=== PATIENT | male | born 1995 | race Caucasian/White ===

== ENCOUNTER → 2024-05-09 | Outpatient (CLI) | payer BC | LOC: RAD 13:08 | DX: R06.00 Dyspnea, unspecified (principal) ==

== ENCOUNTER 2024-07-26 11:19 | Emergency (ER) | payer BC ==
[~2024-07-26] VITALS: Ht 175.3 cm; Wt 113.6 kg
[2024-07-26] MEDS ORDERED: NS 1,000 ML IV SCH (12:15)
[2024-07-26 12:27] LABS: BASO # 0.03 K/mm3 (0.02-0.10); EOS # 0.25 K/mm3 (0.04-0.40); EOS % 2.5 % (0.0-4.0); HEMOGLOBIN 13.9 g/dL (13.5-18.0); LYMPH# 2.73 K/mm3 (1.50-4.00); MEAN CELL VOLUME 85 fl (78-100); MEAN CORPUSCULAR HEMOGLOBIN 30 pg (27-31); MEAN CORPUSCULAR HGB CONC 35 g/dL (33-37); MEAN PLATELET VOLUME 9.2 fl (7.4-10.4); MONO # 0.78 K/mm3 (0.20-0.80); PLATELET COUNT 250 K/mm3 (130-400); RED BLOOD COUNT 4.69 M/mm3 (4.20-5.60); RED CELL DISTRIBUTION WIDTH 11.9 % (11.5-14.5)
[2024-07-26 12:31] LABS: ALBUMIN 4.5 g/dL (3.5-5.0); SODIUM 143 mmol/L (136-145)
[2024-07-26 12:32] LABS: CALCIUM 9.3 mg/dL (8.3-10.5)
[2024-07-26] MEDS ORDERED: PROAIR HFA0.09 MG/AC IH (12:32)
[2024-07-26 12:33] LABS: GLUCOSE 106 mg/dL (75-110); TOTAL PROTEIN 7.3 g/dL (6.4-8.3)
[2024-07-26 12:34] LABS: CARBON DIOXIDE 24 mmol/L (22-29)
[2024-07-26 12:35] LABS: TOTAL BILIRUBIN 0.5 mg/dL (0.2-1.2)
[2024-07-26 12:39] LABS: AST-SGOT 31 U/L (5-34)
[2024-07-26 12:40] LABS: ALCOHOL IN-HOUSE < 10 mg/dL (<10); ALT/SGPT 43 U/L (0-55)
[2024-07-26 12:46] LABS: TROPONIN-I < 0.030 ng/mL (0.00-0.033)
[2024-07-26 13:07] LABS: URINE WBC 0 /hpf (0-3)
[2024-07-26 13:28] VITALS: BP 147/62
[2024-07-26 13:44] LABS: URINE APPEARANCE CLEAR (CLEAR); URINE BILIRUBIN NEGATIVE (NEGATIVE); URINE BLOOD NEGATIVE (NEGATIVE); URINE COLOR YELLOW (YELLOW); URINE GLUCOSE NEGATIVE (NEGATIVE); URINE KETONE NEGATIVE (NEGATIVE); URINE LEUKOCYTE ESTERASE NEGATIVE (NEGATIVE); URINE NITRATE NEGATIVE (NEGATIVE); URINE PROTEIN(semi-quant) NEGATIVE (NEGATIVE)
== END 2024-07-26 13:58 | disposition home or self-care (01) ==
LOC: ED 11:19
PROVIDERS: Nurse Practitioner
DX: F12.10 Cannabis abuse, uncomplicated (principal); R44.3 Hallucinations, unspecified; R00.2 Palpitations; Z79.899 Other long term (current) drug therapy
CPT/HCPCS: J7030